=== PATIENT | male | born 1975 | race Caucasian/White ===

== ENCOUNTER 2019-09-23 23:56 | Emergency (ER) | payer BC ==
[~2019-09-23] VITALS: Ht 190.5 cm; Wt 101.6 kg
[2019-09-23 23:59] VITALS: BP 133/85
--- NOTE | 2019-09-24 00:39 | NUR ---
PT PROVIDED URINE CUP AND INFORMED OF THE NEED FOR A URINE SAMPLE.
[2019-09-24 00:42] LABS: BASOPHILS # (AUTO) 0.05 x10^3/uL (0-0.1); BASOPHILS % (AUTO) 1 % (0-1); EOSINOPHILS # (AUTO) 0.29 x10^3/uL (0-0.4); EOSINOPHILS % (AUTO) 4 % (1-7); LYMPHOCYTES # (AUTO) 2.54 x10^3/uL (1-3.4); LYMPHOCYTES % (AUTO) 31 % (22-44); MD NO; MEAN CORPUSCULAR HEMOGLOBIN 31.6 pg (27.5-34.5); MEAN CORPUSCULAR HGB CONC 34.4 g/dL (33.2-36.2); MEAN CORPUSCULAR VOLUME 91.7 fL (81-97); MEAN PLATELET VOLUME 7.7 fL (7.4-10.4); MONOCYTES # (AUTO) 0.72 x10^3/uL (0.2-0.8); MONOCYTES % (AUTO) 9 % (2-9); NEUTROPHILS # (AUTO) 4.73 x10^3/uL (1.8-6.8); NEUTROPHILS % (AUTO) 57 % (42-75); PLATELET COUNT 228 x10^3/uL (130-400); RED BLOOD COUNT 5.23 x10^6/uL (4.38-5.82); RED CELL DISTRIBUTION WIDTH 12.7 % (9.4-14.8)
[2019-09-24 00:52] LABS: ALANINE AMINOTRANSFERASE 26 U/L (12-78); ALBUMIN 4.2 g/dL (3.4-5.0); ANION GAP 6 mmol/L (5-15); CALCIUM 9.3 mg/dL (8.5-10.1); CHLORIDE 106 mmol/L (98-107); CREATININE 1.19 mg/dL (0.7-1.3)
[2019-09-24 00:56] LABS: ALKALINE PHOSPHATASE 62 U/L (45-117); BILIRUBIN,TOTAL 0.4 mg/dL (0.2-1.0); TOTAL PROTEIN 7.4 g/dL (6.4-8.2); TROPONIN I < 0.015 ng/mL (0.000-0.045)
[2019-09-24 01:20] LABS: MICROSCOPIC NOT IND
[2019-09-24 01:29] LABS: CULTURE INDICATED? NO
== END 2019-09-24 02:15 | disposition home or self-care (01) ==
LOC: ED 09-24 02:09
DX: R07.2 Precordial pain (principal); F17.210 Nicotine dependence, cigarettes, uncomplicated
CPT/HCPCS: 36415; 71046; 80053; 81003; 84484; 85025; 93005; 99284; 99406

== ENCOUNTER → 2019-11-05 | Outpatient (CLI) | payer BC ==
[~2019-11-05] MED LIST: GADOTERATE 10 MMOL/20 ML SYR ONE
== END | disposition home or self-care (01) ==
LOC: RAD 16:19 → EDSTATUS 11-06 15:00
PROVIDERS: ATTEND Family Medicine
DX: Z01.818 Encounter for other preprocedural examination (principal); R41.3 Other amnesia; R43.2 Parageusia; H53.9 Unspecified visual disturbance
CPT/HCPCS: 70150; 70553; A9575

== ENCOUNTER 2020-06-03 17:44 | Emergency (ER) | payer BC ==
[~2020-06-03] VITALS: Ht 190.5 cm; Wt 83.0 kg
--- NOTE | 2020-06-03 18:03 | NUR ---
PT AIRWAY PATENT, VSS, NO S/S OF RESP DISTRESS.
--- NOTE | 2020-06-03 18:25 | NUR ---
FIRST CONTACT WITH PT AND FAMILY. PT SITTING UP IN [facility] IN MILD-MODERATE DISTRESS SECONDARY TO DIFFUSE PAIN. FAMILY REPORTS "DIFFICULTY CLEARING THROAT" X SEVERAL DAYS, +INCREASED RESP SECRETIONS, TINNITIS, AND MUFFLED VOICE. SIGNIFICANT PMH GLIOBLASTOMA W RADIATION/CHEMOTHERPAY. LAST CHEMO SEVERAL WEEKS AGO. DENIES N/V/FEVER/CP/SOB/PRODUCTIVE COUGH. PT AWAKE/ALERT, A&OX4. AIRWAY APPEARS PATENT, SPEECH MUFFLED. NO DROOLING OR STRIDOR. MM DRY. LUNG SOUNDS DIMINISHED THROUGHOUT. BP/SPO2/ECG MONITORING IN PLACE.
[2020-06-03 18:58] VITALS: BP 117/80
--- NOTE | 2020-06-03 19:07 | NUR ---
REPORT TO HARRY TAVERAS
[2020-06-03] MEDS ORDERED: SODIUM CHLORIDE 0.9% 1,000ML IVBOLUS ONE (20:00)
[2020-06-03] MEDS ORDERED: SODIUM CHLORIDE FLUSH 10ML SYR IVF ONE (20:00)
== END 2020-06-03 21:03 | disposition home or self-care (01) ==
LOC: ED 20:00
DX: J69.0 Pneumonitis due to inhalation of food and vomit (principal); R13.10 Dysphagia, unspecified; Z85.3 Personal history of malignant neoplasm of breast
CPT/HCPCS: 71045; 96360; 99283; J7030